=== PATIENT | male | born 1970 | race Caucasian/White ===

== ENCOUNTER 2016-08-26 12:00 | Emergency (ER) | payer BC ==
--- NOTE | 2016-09-01 21:34 | ER ---
ADMIT: 08/26/2016 RM/LOC: ER [facility] MR#: [id number] [address] [facility] [address] [place] [id number] ANTONI GARCIA Ber[address] [place] [address] Emergency Room Report SEX: M AGE: 46 : 1970 DATE: 08/26/2016 PRIMARY CARE: Josseline Pugh PA-C CHIEF COMPLAINT: Shortness of breath and left arm numbness. HISTORY OF PRESENT ILLNESS: This is a pleasant 46-year-old male, who presents to the ER for some evaluation of left arm numbness and shortness of breath. The patient states on Saturday, he had a skin biopsy on the left. Since then, he has had some left arm paresthesia, which he states kind of starts at the neck and continues down into the hand. He has had some skin conditions. He is following up with the sap business analyst, and he is to start on minocycline. States he has some increased shortness of breath with hacking cough, however, he does smoke a pack per day. He uses an albuterol inhaler as needed for diagnosis of asthma. Also, has hypertension on losartan, hydrochlorothiazide, and Bystolic. COURSE IN EMERGENCY ROOM: The patient was seen and examined. He is afebrile and nontoxic. He does have some faint wheezes in the bases. No rhonchi. No prolonged expiration, retraction, or accessory muscle use. He has no respiratory distress. Heart is regular rate and rhythm. Abdomen, nontender. The left upper extremity is compared bilaterally with the right sharp and dull. Sensation is intact. Motor is equal in the upper extremities compared bilaterally. We did get an EKG today, which showed normal sinus rhythm with some peaked T-waves. Checked the potassium 3.8. Also got a chest x-ray, which does show some flattened diaphragm and hyperexpansion of the lungs concerning for early emphysematous changes. IMPRESSION: 1. Left upper extremity radiculopathy. 2. History of mild intermittent asthma. DISPOSITION: I will discharge the patient with a Medrol Dosepak. Hopefully, decrease some inflammation causing the radiculopathy, also improve his shortness of breath. He is to continue to use albuterol as previously prescribed for shortness of breath. Apply ice or heat as needed on to the shoulder pain. He should start taking Vicodin prescribed by the sap business analyst. Continue all of his home medications. Followup with Josseline Pugh as needed. Questions were sought and answered to the best of the patient's satisfaction. Discharged in stable condition. COMFORT Aguilera / Que Ng MD / jyotsna JOB #: [id number] CC: Que Ng MD, Attending Physician Josseline Pugh PA-C, Family Physician
== END 2016-08-26 14:03 | disposition home or self-care (01) ==
LOC: ER 12:00
DX: J45.909 Unspecified asthma, uncomplicated (principal); M54.10 Radiculopathy, site unspecified; F17.210 Nicotine dependence, cigarettes, uncomplicated; Z79.899 Other long term (current) drug therapy